=== PATIENT | male | born 1960 | race Caucasian/White ===

== ENCOUNTER 2017-12-18 06:20 | Day surgery (SDC) | payer BC ==
[~2017-12-18 06:20] MED LIST: CEFAZOLIN 1 GM/50 ML (PMX) 50 ML IVPB; CEFAZOLIN 2 GM/50 ML (PMX) 50 ML IVPB; SOD CHLORIDE 0.9% 1,000 ML IV
[2017-12-18] MEDS ORDERED: PROPOFOL 20 ML (07:23)
[2017-12-18] MEDS ORDERED: ROCURONIUM 50 MG INJ (07:25)
[2017-12-18] MEDS ORDERED: LIDOCAINE 2% (SDV) 5 ML INJ (07:25)
[2017-12-18] MEDS ORDERED: CEFAZOLIN 1 GM INJ (07:33)
[2017-12-18] MEDS ORDERED: DEXAMETHASONE 4 MG/ML 1 ML INJ (08:02)
[2017-12-18] MEDS ORDERED: ONDANSETRON 4 MG INJ (08:08)
[2017-12-18] MEDS ORDERED: SUGAMMADEX SODIUM 200 MG/2 ML VIAL IV (08:33)
[2017-12-18] MEDS: POLYMYXIN/BACITRACIN 1L IRRIG (08:53)
[2017-12-18] MEDS: BUPIVACAINE 0.25% (MPF) 30 ML INJ (08:53)
[2017-12-18] MEDS ORDERED: HYDROmorphONE (0.2 MG/ML) 10ML SYG IV ×2 (09:00)
[2017-12-18] MEDS ORDERED: hydrALAzine 20 MG INJ IV (09:00)
[2017-12-18] MEDS ORDERED: EPHEDrine SULFATE 50 MG/5 ML SYG IV (09:00)
[2017-12-18] MEDS ORDERED: DIPHENHYDRAMINE 50 MG INJ IV (09:00)
[2017-12-18] MEDS ORDERED: OXYCODONE/ACETAMINOPHEN (5/325) TAB PO ×2 (09:00)
[2017-12-18] MEDS ORDERED: METOCLOPRAMIDE 10 MG INJ IV (09:00)
[2017-12-18] MEDS ORDERED: MEPERIDINE 25 MG INJ IV (09:00)
[2017-12-18] MEDS ORDERED: FENTAnyl 50 MCG/ML VIAL IV ×2 (09:00)
[2017-12-18] MEDS ORDERED: HYDROCODONE/APAP (5/325) TAB PO (09:00)
[2017-12-18] MEDS ORDERED: LABETALOL HCL 20MG INJ IV (09:00)
[2017-12-18] MEDS ORDERED: ONDANSETRON 4 MG INJ IV (09:00)
[2017-12-18] MEDS ORDERED: ALBUTEROL 0.083% (NEB) 2.5 MG/3 ML AMP HHN (09:00)
[2017-12-18] MEDS: HYDROmorphONE (0.2 MG/ML) 10ML SYG IV (09:14)
[2017-12-18] MEDS: KETOROLAC 30 MG INJ IV (09:24)
[2017-12-18] MEDS: FENTAnyl 50 MCG/ML VIAL IV (09:24)
== END 2017-12-18 10:45 | disposition home or self-care (01) ==
LOC: SDS 06:20
DX: K40.31 Unilateral inguinal hernia, with obstruction, without gangrene, recurrent (principal); E11.9 Type 2 diabetes mellitus without complications; E66.01 Morbid (severe) obesity due to excess calories; Z68.41 Body mass index [BMI] 40.0-44.9, adult
CPT/HCPCS: 49521; 88304